=== PATIENT | male | born 1955 | race Caucasian/White ===

== ENCOUNTER 2024-01-05 09:03 | Outpatient (AMB) | payer MEDICARE, SELFPAY ==
--- NOTE | 2024-01-05 09:12 | MHC.OFFVIS ---
Intake Visit Reasons: Elevated PSA/Recurrent UTI/Prostatitis Intake Note: New Patient is present for Elevated PSA/Prostatitis/Recurrent UTI Urology Med: Tamsulosin no longer taking Antibiotic Allergy: Operations Advisor Required: No Accompanied by: Self / Same As Patient Allergies No Known Allergies Allergy (Verified 01/05/24 09:17) HPI Comments Details: Terry is a pleasant male. He is a patient of . He is seen in the following urologic conditions - elevated PSA Value bumped with UTI Has been having weakness of stream Recommend trial of alpha-cady Elevated PSA PSA 05/05 1.9, 05/06 26.4, 12/05 4.9 PSA elevation occurred with UTI Scrotal ultrasound 10/05 - normal PFSH Medical History Emphysema, unspecified Chronic neck pain Mixed hyperlipidemia Surgical History History of appendectomy Social History Patient Tobacco Use Status: Former Tobacco user Review of Systems Const Denies chills and Denies fever(s) Card Reports no additional complaints and Denies syncope Resp Denies cough GI Denies abdominal pain and Denies heartburn Reports as per HPI and Denies change in libido Neuro Denies syncope Psych Denies change in libido Endo Denies change in libido Physical Exam Const General: cooperative, healthy appearing, comfortable and no acute distress Orientation/consciousness: patient oriented x3 HEENT Face and sinus: Yes normal facial exam Mouth: moist mucous membranes Neck Neck: Yes normal visual inspection, Yes full ROM and Yes trachea midline Chest Chest palpation & inspection: normal inspection of the chest Resp Effort & Inspection: normal respiratory effort, able to speak in complete sentences and no respiratory distress GI Inspection: Yes normal to inspection Back/Spine/Pelvis Cervical Spine: normal cervical lordosis Thoracic/Lumbar Spine: thoracic and lumbar spine normal to inspection Skin General skin exam: no rashes or lesions noted Neuro General: patient oriented x3, gait normal, tone normal and moves all extremities Extrem General: Yes normal to inspection and Yes capillary refill normal Assessment & Plan Assessment & Plan (1) Weak urinary stream: Code(s): R39.12 - Poor urinary stream Category: Medical Plan Trial alpha-cady Two month follow-up imaging and cystoscopy Orders: Orders AMB Urinalysis Automated 01/05/24 Z13.9 - Encounter for screening, unspecified US bladder 01/05/24 R39.12 - Poor urinary stream Medications: New alfuzosin ER Take before bedtime 10 mg PO BEDTIME 30 tabs 1RF 30 days R39.12 - Poor urinary stream, R35.1 - Nocturia, N40.1 - Benign prostatic hyperplasia with lower urinary tract symptoms, R33.9 - Retention of urine, unspecified, N32.0 - Bladder-neck obstruction alfuzosin ER Take before bedtime 10 mg PO BEDTIME 30 tabs 1RF 30 days R39.12 - Poor urinary stream, R35.1 - Nocturia, N40.1 - Benign prostatic hyperplasia with lower urinary tract symptoms, R33.9 - Retention of urine, unspecified, N32.0 - Bladder-neck obstruction Patient Instructions: Imaging studies, laboratory and physical exam results were discussed and reviewed in detail. No major barriers to patient understanding were identified. An opportunity to ask questions regarding the treatment plan was provided. All questions were answered. The patient expressed understanding and agreement with the above treatment plan. The patient is aware they should contact our office by phone for worsening of their current condition or the appearance of new urologic symptoms. Compliance is encouraged with any medications and followup testing that is ordered. It is a privilege to participate in the urologic care of your patient. If you have any questions or concerns regarding treatment for the above conditions, or other urologic issues, please do not hesitate to contact me. The office telephone contact is [phone]. This note is constructed using voice recognition software. While every effort has been made to ensure accuracy internet webmaster errors may have been included. Yours sincerely, Dr Jose Head MD, [facility] - Urology Providers of Expert, Compassionate Care for the Genitourinary System Coding Level of Care Code New Pt Level 4 (59748) Diagnoses Weak urinary stream R39.12
== END 2024-01-05 10:09 | disposition home or self-care (01) ==
LOC: HO.HUSH 09:03
PROVIDERS: PCP Student in an Organized Health Care Education/Training Program; Visit Provider Urology
DX: R39.12 Poor urinary stream (principal)
CPT/HCPCS: 99204

== ENCOUNTER → 2024-01-05 09:03 | Outpatient (BNVA) | payer MEDICARE, SELFPAY | PROVIDERS: PCP Student in an Organized Health Care Education/Training Program; Visit Provider Urology | DX: R97.20 Elevated prostate specific antigen [PSA] (principal) | CPT/HCPCS: 99202 ==